=== PATIENT | male | born 1990 | race Hispanic/Latino ===

== ENCOUNTER 2018-05-14 17:18 | Emergency (ER) | payer BC ==
--- NOTE | 2018-05-14 18:02 | ER ---
Nurse's Notes [facility] Name: Rafael Rojo Age: 27 yrs Sex: Male : 1990 Arrival Date: 05/14/2018 Time: 17:23 Bed 10 Private MD: Diagnosis: Laceration without foreign body of right index finger without damage to nail Presentation: 05/14 17:29 Presenting complaint: Patient states: cut right index finger with ceramic kitchen knife iw last night, still having pain and bleeding today. Transition of care: patient was not received from another setting of care. Complicating Factors: There are no complicating factors for this patient. Onset of symptoms was May 13, 2018. Risk Assessment: Do you want to hurt yourself or someone else? Patient reports no desire to harm self or others. Initial Sepsis Screen: Does the patient meet any 2 criteria? No. Patient's initial sepsis screen is negative. Does the patient have a suspected source of infection? No. Patient's initial sepsis screen is negative. Care prior to arrival: Bleeding of injury controlled. Injury dressed. 17:29 Method Of Arrival: Ambulatory iw 17:29 Acuity: SHERICE 4 iw Historical: - Allergies: 17:30 NKA; iw - Home Meds: 17:30 None [Active]; iw - PMHx: 17:30 None; iw - PSHx: 17:30 None; iw - Immunization history:: Last tetanus immunization: unknown. - Social history:: Smoking status: Patient/guardian denies using tobacco. - Ebola Screening: : Patient negative for fever greater than or equal to 101.5 degrees Fahrenheit, and additional compatible Ebola Virus Disease symptoms Patient denies exposure to infectious person Patient denies travel to an Ebola-affected area in the 21 days before illness onset No symptoms or risks identified at this time. Screenin:38 Abuse screen: Denies threats or abuse. Denies injuries from another. Nutritional iw screening: No deficits noted. Tuberculosis screening: No symptoms or risk factors identified. Fall Risk None identified. Assessment: 17:38 General: Appears in no apparent distress. Behavior is calm, cooperative. Pain: iw Complains of pain in palmar aspect of middle phalanx of right index finger Pain currently is 8 out of 10 on a pain scale. at worst was 10 out of 10 on a pain scale. Neuro: Level of Consciousness is awake, alert, obeys commands, Oriented to person, place, time, situation, Moves all extremities. Full function. Cardiovascular: Patient's skin is warm and dry. Respiratory: Respiratory effort is even, unlabored, Respiratory pattern is regular, symmetrical. Derm: Skin is intact, is healthy with good turgor. Musculoskeletal: Range of motion: intact in all extremities. Injury Description: Laceration sustained to dorsal aspect of middle phalanx of right index finger and palmar aspect of middle phalanx of right index finger is 0.5 to 2.5 cm long, not bleeding, was sustained 12-24 hours ago. Vital Signs: 17:30 BP 138 / 57; Pulse 66; Resp 16; Temp 98.2; Pulse Ox 98% on R/A; Weight 65.77 kg; Height iw 5 ft. 3 in. (160.02 cm); Pain 10/10; 17:30 Body Mass Index 25.69 (65.77 kg, 160.02 cm) iw ED Course: 17:23 Patient arrived in ED. as 17:29 Yue Valle, RN is Primary Nurse. iw 17:30 Triage completed. iw 17:30 Arm band placed on. iw 17:32 [facility]-C [facility]. snw 17:32 Herve Miguel MD is Attending Physician. snw 17:38 Yue Valle, RN is Primary Nurse. iw 17:38 Patient has correct armband on for positive identification. iw 17:38 Patient did not have IV access during this emergency room visit. iw 18:40 No provider procedures requiring assistance completed. rv Administered Medications: 18:20 Drug: [place] 5 mg-325 mg 1 tabs Route: PO; rv 18:40 Follow up: Response: Pain is decreased rv 18:20 Drug: Tetanus-Diphtheria Toxoid Adult 0.5 ml {Watch Electrician: [place]. Exp: rv 06/29/2020. Lot #: [id number]. } Route: IM; Site: left deltoid; 18:40 Follow up: Response: Medication administered at discharge. rv 18:30 Drug: Hibiclens 4 % 1 application Route: Topical; Site: right hand; rv Outcome: 18:02 Discharge ordered by . snw 18:40 Discharged to home ambulatory. rv 18:40 Condition: good 18:40 Discharge instructions given to patient, Instructed on discharge instructions, follow up and referral plans. wound care, Demonstrated understanding of instructions, follow-up care, wound care. 18:41 Patient left the ED. rv Signatures: Pallavi Cruz, NUTRITION SERVICES ASSOCIATE-C NUTRITION SERVICES ASSOCIATE-Arthurw Alie Luis Irene, RN RN iw Dougie Skelton RN RN rv
--- NOTE | 2018-05-14 18:02 | EDPHYS ---
Physician Documentation [facility] Name: Rafael Rojo Age: 27 yrs Sex: Male : 1990 Arrival Date: 05/14/2018 Time: 17:23 Bed 10 Private MD: ED Physician Herve Miguel HPI: 05/14 18:33 This 27 yrs old Male presents to ER via Ambulatory with complaints of snw Laceration - Finger. 18:33 The patient or guardian reports injury, a laceration, clean. The complaints affect the snw dorsal aspect of middle phalanx of right index finger. Context: The problem was sustained at home, resulted from cooking, using ceramic knife. Onset: The symptoms/episode began/occurred suddenly, yesterday, and became persistent. Associated signs and symptoms: Pertinent positives: pain, recurrent bleeding. Severity of symptoms: At their worst the symptoms were very mild. It is unknown whether or not the patient has had similar symptoms in the past. It is unknown whether or not the patient has recently seen a physician. Historical: - Allergies: 17:30 NKA; iw - Home Meds: 17:30 None [Active]; iw - PMHx: 17:30 None; iw - PSHx: 17:30 None; iw - Immunization history:: Last tetanus immunization: unknown. - Social history:: Smoking status: Patient/guardian denies using tobacco. - Ebola Screening: : Patient negative for fever greater than or equal to 101.5 degrees Fahrenheit, and additional compatible Ebola Virus Disease symptoms Patient denies exposure to infectious person Patient denies travel to an Ebola-affected area in the 21 days before illness onset No symptoms or risks identified at this time. ROS: 18:29 Constitutional: Negative for fever, chills, and weight loss, Eyes: Negative for injury, snw pain, redness, and discharge, ENT: Negative for injury, pain, and discharge, Neck: Negative for injury, pain, and swelling, Cardiovascular: Negative for chest pain, palpitations, and edema, Respiratory: Negative for shortness of breath, cough, wheezing, and pleuritic chest pain, Abdomen/GI: Negative for abdominal pain, nausea, vomiting, diarrhea, and constipation, Back: Negative for injury and pain, : Negative for injury, bleeding, discharge, and swelling, MS/Extremity: Negative for injury and deformity, Neuro: Negative for headache, weakness, numbness, tingling, and seizure, Psych: Negative for depression, anxiety, suicide ideation, homicidal ideation, and hallucinations. 18:29 Skin: Positive for laceration(s), of the dorsal aspect of middle phalanx of right index finger. Exam: 18:25 Constitutional: This is a well developed, well nourished patient who is awake, alert, snw and in no acute distress. Head/Face: Normocephalic, atraumatic. Eyes: Pupils equal round and reactive to light, extra-ocular motions intact. Lids and lashes normal. Conjunctiva and sclera are non-icteric and not injected. Cornea within normal limits. Periorbital areas with no swelling, redness, or edema. ENT: Nares patent. No nasal discharge, no septal abnormalities noted. Tympanic membranes are normal and external auditory canals are clear. Oropharynx with no redness, swelling, or masses, exudates, or evidence of obstruction, uvula midline. Mucous membranes moist. Neck: Trachea midline, no thyromegaly or masses palpated, and no cervical lymphadenopathy. Supple, full range of motion without nuchal rigidity, or vertebral point tenderness. No Meningismus. Chest/axilla: Normal chest wall appearance and motion. Nontender with no deformity. No lesions are appreciated. Cardiovascular: Regular rate and rhythm with a normal S1 and S2. No gallops, murmurs, or rubs. Normal PMI, no JVD. No pulse deficits. Respiratory: Lungs have equal breath sounds bilaterally, clear to auscultation and percussion. No rales, rhonchi or wheezes noted. No increased work of breathing, no retractions or nasal flaring. Abdomen/GI: Soft, non-tender, with normal bowel sounds. No distension or tympany. No guarding or rebound. No evidence of tenderness throughout. Back: No spinal tenderness. No costovertebral tenderness. Full range of motion. MS/ Extremity: Pulses equal, no cyanosis. Neurovascular intact. Full, normal range of motion. Neuro: Awake and alert, GCS 15, oriented to person, place, time, and situation. Cranial nerves II-XII grossly intact. Motor strength 5/5 in all extremities. Sensory grossly intact. Cerebellar exam normal. Normal gait. Psych: Awake, alert, with orientation to person, place and time. Behavior, mood, and affect are within normal limits. 18:25 Skin: Appearance: normal except for affected area, injury, laceration(s), the wound is approximately 1.5 cm(s), with a depth of .5 cm(s), of the dorsal aspect of middle phalanx of right index finger. Vital Signs: 17:30 BP 138 / 57; Pulse 66; Resp 16; Temp 98.2; Pulse Ox 98% on R/A; Weight 65.77 kg; Height iw 5 ft. 3 in. (160.02 cm); Pain 10/10; 17:30 Body Mass Index 25.69 (65.77 kg, 160.02 cm) iw MDM: 17:32 Patient medically screened. snw 18:04 Data reviewed: vital signs, nurses notes. Data interpreted: Pulse oximetry: on room air snw is 98 %. Interpretation: normal. Counseling: I had a detailed discussion with the patient and/or guardian regarding: the historical points, exam findings, and any diagnostic results supporting the discharge/admit diagnosis, the need for outpatient follow up, for definitive care, to return to the emergency department if symptoms worsen or persist or if there are any questions or concerns that arise at home. Special discussion: I have referred the patient to see his PCP for further evaluation of high blood pressure. Based on the history and exam findings, there is no indication for further emergent testing or inpatient evaluation. I discussed with the patient/guardian the need to see the primary care provider for further evaluation of the symptoms. 05/14 17:59 Order name: Wound Care; Complete Time: 18:39 snw 05/14 17:59 Order name: Wound dressing: surgicel and pressure dressing; Complete Time: 18:39 snw Administered Medications: 18:20 Drug: [place] 5 mg-325 mg 1 tabs Route: PO; rv 18:40 Follow up: Response: Pain is decreased rv 18:20 Drug: Tetanus-Diphtheria Toxoid Adult 0.5 ml {Oil Spreader Operator: indeni. Exp: rv 06/29/2020. Lot #: [id number]. } Route: IM; Site: left deltoid; 18:40 Follow up: Response: Medication administered at discharge. rv 18:30 Drug: Hibiclens 4 % 1 application Route: Topical; Site: right hand; rv Disposition: 19:05 Co-signature as Attending Physician, Herve Miguel MD. Disposition: 05/14/18 18:02 Discharged to Home. Impression: Laceration without foreign body of right index finger without damage to nail. - Condition is Stable. - Discharge Instructions: Delayed Wound Closure, Laceration Care, Adult, VIS, Tetanus, Diphtheria (Td) - CDC, Wound Care. - Medication Reconciliation Form, Thank You Letter, Antibiotic Education, Prescription Opioid Use form. - Follow up: Private Physician; When: 2 - 3 days; Reason: Recheck today's complaints, Continuance of care, Re-evaluation by your physician. Follow up: Emergency Department; When: As needed; Reason: Worsening of condition. Signatures: Pallavi Cruz, PARAPROFESSIONAL EDUCATION ASSISTANT-C PARAPROFESSIONAL EDUCATION ASSISTANT-Csnw Yue Valle, JOVANI RN iw Herve Miguel MD MD Dougie Skelton RN RN rv Corrections: (The following items were deleted from the chart) 18:41 18:02 05/14/2018 18:02 Discharged to Home. Impression: Laceration without foreign body rv of right index finger without damage to nail. Condition is Stable. Forms are Medication Reconciliation Form, Thank You Letter, Antibiotic Education, Prescription Opioid Use. Follow up: Private Physician; When: 2 - 3 days; Reason: Recheck today's complaints, Continuance of care, Re-evaluation by your physician. Follow up: Emergency Department; When: As needed; Reason: Worsening of condition. snw
[2018-05-14] MEDS ORDERED: HYDROCODONE/APAP 5/325 MG TAB ONE (18:17)
[2018-05-14] MEDS ORDERED: TETANUS & DIPHTHERIA TOX,ADULT 0.5 ML VIAL ONE (18:17)
== END 2018-05-14 18:41 | disposition home or self-care (01) ==
LOC: ER 17:18
DX: S61.212A Laceration without foreign body of right middle finger without damage to nail, initial encounter (principal); W26.0XXA Contact with knife, initial encounter; Y93.G3 Activity, cooking and baking; Y92.009 Unspecified place in unspecified non-institutional (private) residence as the place of occurrence of the external cause; Z23 Encounter for immunization
CPT/HCPCS: 90714; 99283